=== PATIENT | female | born 1980 | race African-American/Black ===

== ENCOUNTER 2016-07-01 22:27 | Emergency (ER) | payer MEDICAID ==
[~2016-07-01] VITALS: Ht 157.5 cm; Wt 114.0 kg
[~2016-07-01 22:27] MED LIST: BACT800T5 PO; CEPH500C3 PO; METO25 PO
[2016-07-01 22:29] VITALS: BP 117/78; PULSE 80; RESP 18; TEMP 98; O2SAT 100
[2016-07-02] MEDS ORDERED: SODIUM CHLORIDE 0.9% FLUSH 5 ML FLUSH IVF PRN (01:30)
[2016-07-02] MEDS ORDERED: METO25TA3 PO (01:32)
[2016-07-02 02:28] LABS: AUTOMATED NEUTROPHIL # 6.1 TH/MM3 (1.8-7.7); BASOPHIL # 0.1 TH/MM3 (0-0.2); BASOPHIL % 0.8 % (0.0-2.0); EOSINOPHIL # 0.1 TH/MM3 (0-0.4); EOSINOPHIL % 0.6 % (0.0-4.0); HEMATOCRIT 39.4 % (35.0-46.0); HEMO FLAGS DIFF FINAL; LYMPH % 23.1 % (9.0-44.0); MEAN CELL VOLUME 88.4 FL (80.0-100.0); MEAN CORPUSCULAR HEMOGLOBIN 29.7 PG (27.0-34.0); MEAN CORPUSCULAR HGB CONC 33.6 % (32.0-36.0); MONO % 4.2 % (0.0-8.0); NEUT % 71.3 % (16.0-70.0); PLATELET COUNT 326 TH/MM3 (150-450); RED BLOOD COUNT 4.46 MIL/MM3 (4.00-5.30); RED CELL DISTRIBUTION WIDTH 13.7 % (11.6-17.2); WHITE BLOOD COUNT 8.6 TH/MM3 (4.0-11.0)
[2016-07-02 02:45] LABS: ANION GAP 9 MEQ/L (5-15); BICARBONATE 23.9 MEQ/L (21.0-32.0); BLOOD UREA NITROGEN 6 MG/DL (7-18); CHLORIDE 105 MEQ/L (98-107); POTASSIUM 3.7 MEQ/L (3.5-5.1); SODIUM (NA) 138 MEQ/L (136-145)
[2016-07-02 03:03] LABS: BETA HCG QUANT 157841 MIU/ML (0-5)
--- NOTE | 2016-07-02 04:30 | PD ---
HPI Chief Complaint: Related Problem Time Seen by Provider: 01:18 Travel History International Travel<30 days: No Contact w/Intl Traveler<30days: No Traveled to known affect area: No History of Present Illness HPI Patient 35-year-old female at unknown gestational age presents emergency department for evaluation of vaginal bleeding and lower quadrant abdominal cramping. Patient states she's had intermittent vaginal bleeding small volume for the past 2-3 days. Abdominal cramping as well. Denies any change in stool or dysuria. Denies any vaginal discharge. Patient has not yet established with a oncologist. She is not taking vitamins but has been abstaining from smoking drinking or fish. PFSH Past Medical History Anemia: Yes Asthma: No Autoimmune Disease: No Blood Disorders: Yes (ANEMIA) Anxiety: No Depression: No Cancer: No Cardiovascular Problems: Yes Cerebrovascular Accident: No Diabetes: No Diminished Hearing: No Endocrine: No Gastrointestinal Disorders: Yes (CROHNS) Genitourinary: No Hepatitis: No Hypertension: No Immune Disorder: No Kidney Stones: No Musculoskeletal: No Neurologic: No Psychiatric: No Reproductive: No Respiratory: No Immunizations Current: Yes Migraines: No Myocardial Infarction: No Radiation Therapy: No Seizures: No Sickle Cell Disease: No Thyroid Disease: No Ulcer: No ?: LMP: 05/18/15 : 3 Para: 3 Miscarriage: 0 : 0 Past Surgical History AICD: No Appendectomy: No Cardiac Surgery: Yes (AVR) Cholecystectomy: No Joint Replacement: No Pacemaker: No Other Surgery: No Social History Alcohol Use: No Tobacco Use: No Substance Use: No Allergies-Medications (Allergen,Severity, Reaction): Coded Allergies: Augmentin (Verified Allergy, Severe, EPITAXIS, 07/02/16) Ibuprofen (Verified Allergy, Severe, SWELLING, NAUSE, AND VOMITING, 07/02/16 ) Reported Meds & Prescriptions Reported Meds & Active Scripts Active Reported Metoprolol Tartrate 25 Mg Tab 25 Mg PO DAILY Review of Systems Except as stated in HPI: all other systems reviewed are Neg Physical Exam Narrative GENERAL: Well-developed well-nourished no apparent distress.] SKIN: Warm and dry. HEAD: Atraumatic. Normocephalic. EYES: Pupils equal and round. No scleral icterus. No injection or drainage. ENT: No nasal bleeding or discharge. Mucous membranes pink and moist. NECK: Trachea midline. No JVD. CARDIOVASCULAR: Regular rate and rhythm. No murmur appreciated. RESPIRATORY: No accessory muscle use. Clear to auscultation. Breath sounds equal bilaterally. GASTROINTESTINAL: Abdomen soft, non-tender, nondistended. Hepatic and splenic margins not palpable. MUSCULOSKELETAL: No obvious deformities. No clubbing. No cyanosis. No edema. NEUROLOGICAL: Awake and alert. No obvious cranial nerve deficits. Motor grossly within normal limits. Normal speech. PSYCHIATRIC: Appropriate mood and affect; insight and judgment normal. Data Data Last Documented VS Vital Signs Date Time Temp Pulse Resp B/P Pulse Ox O2 Delivery O2 Flow Rate FiO2 07/02/16 01:28 80 18 07/01/16 22:29 98.0 117/78 100 Orders Urinalysis - C+S If Indicated (07/02/16 00:06) Ed Urine Pregnancytest Poc (07/02/16 00:06) Basic Metabolic Panel (Bmp) (07/02/16 01:18) Beta Hcg (Quant/Titer) (07/02/16 01:18) Complete Blood Count With Diff (07/02/16 01:18) Iv Access Insert/Monitor (07/02/16 01:18) Ecg Monitoring (07/02/16 01:18) Oximetry (07/02/16 01:18) Sodium Chloride 0.9% Flush (Ns Flush) (07/02/16 01:30) Ed Poc Ultrasound (07/02/16 01:18) Gc And Chlamydia Pcr (07/02/16 01:57) Labs Laboratory Tests Test 07/02/16 01:55 White Blood Count 8.6 TH/MM3 Red Blood Count 4.46 MIL/MM3 Hemoglobin 13.2 GM/DL Hematocrit 39.4 % Mean Corpuscular Volume 88.4 FL Mean Corpuscular Hemoglobin 29.7 PG Mean Corpuscular Hemoglobin 33.6 % Concent Red Cell Distribution Width 13.7 % Platelet Count 326 TH/MM3 Mean Platelet Volume 8.1 FL Neutrophils (%) (Auto) 71.3 % Lymphocytes (%) (Auto) 23.1 % Monocytes (%) (Auto) 4.2 % Eosinophils (%) (Auto) 0.6 % Basophils (%) (Auto) 0.8 % Neutrophils # (Auto) 6.1 TH/MM3 Lymphocytes # (Auto) 2.0 TH/MM3 Monocytes # (Auto) 0.4 TH/MM3 Eosinophils # (Auto) 0.1 TH/MM3 Basophils # (Auto) 0.1 TH/MM3 CBC Comment DIFF FINAL Differential Comment Sodium Level 138 MEQ/L Potassium Level 3.7 MEQ/L Chloride Level 105 MEQ/L Carbon Dioxide Level 23.9 MEQ/L Anion Gap 9 MEQ/L Blood Urea Nitrogen 6 MG/DL Creatinine 0.60 MG/DL Random Glucose 91 MG/DL Calcium Level 9.2 MG/DL Human Chorionic Gonadotropin, 201624 MIU/ML Quant MDM Medical Decision Making Medical Screen Exam Complete: Yes Emergency Medical Condition: Yes Differential Diagnosis Threatened miscarriage, vaginal bleeding in , large mismatch, round ligament pain, Narrative Course Patient roomed in emergency department, appears well and in no apparent distress. She was offered pain medicine the emergency department and declined. She is not tachycardic or abdomen is benign. Bedside ultrasound was reassuring, on past visits patient was noted to be Rh+. I discussed with her indications for a pelvic exam and she is agreeable initially however while being set up she stated that she had to go and take care of family affairs. Discussed with her that I cannot give any reassurances at this time without doing pelvic exam and she is understandable but chooses to leave AGAINST MEDICAL ADVICE. I discussed needs to follow-up with an FIELD SUPPORT SPECIALIST take vitamins and discussed early care. Procedures Procedure Narrative Bedside ultrasound transabdominal: Single intrauterine seen approximately 8 weeks 6 days by crown-rump length. heart tones in the 170s. No gross abnormality, motion is seen. This is consistent with a normal early intrauterine . Diagnosis Primary Impression: Vaginal bleeding in Qualified Code: O46.91 - Vaginal bleeding in , first trimester Patient Instructions: General Instructions Departure Forms: Tests/Procedures Disposition: AGAINST MEDICAL ADVICE Condition: Stable Iván Pulliam MD Jul 02, 2016 04:30
== END 2016-07-02 04:10 | disposition left against medical advice (07) ==
LOC: NEPC 22:27
DX: O46.91 Antepartum hemorrhage, unspecified, first trimester (principal); Z3A.08 8 weeks gestation of pregnancy
CPT/HCPCS: 80048; 84702; 85025; 99284

== ENCOUNTER → 2016-09-12 | Outpatient (CLI) | payer MEDICAID ==
[~2016-09-12] MED LIST changes: -BACT800T5 PO; -CEPH500C3 PO; -METO25 PO; +METO25TA3 PO
== END ==
LOC: HPND 08:50
PROVIDERS: ATTEND Obstetrics & Gynecology
DX: O09.522 Supervision of elderly multigravida, second trimester (principal); O99.612 Diseases of the digestive system complicating pregnancy, second trimester; O99.212 Obesity complicating pregnancy, second trimester
CPT/HCPCS: 76811

== ENCOUNTER → 2016-10-09 | Outpatient (CLI) | payer MEDICAID | LOC: HPND 10:41 | PROVIDERS: ATTEND Obstetrics & Gynecology | DX: O09.522 Supervision of elderly multigravida, second trimester (principal); O99.612 Diseases of the digestive system complicating pregnancy, second trimester; O35.2XX0 Maternal care for (suspected) hereditary disease in fetus, not applicable or unspecified; O99.322 Drug use complicating pregnancy, second trimester; Z3A.22 22 weeks gestation of pregnancy | CPT/HCPCS: 76816 ==

== ENCOUNTER → 2016-11-09 | Outpatient (CLI) | payer MEDICAID | LOC: HPND 09:56 | PROVIDERS: ATTEND Obstetrics & Gynecology | DX: O09.522 Supervision of elderly multigravida, second trimester (principal); O99.212 Obesity complicating pregnancy, second trimester | CPT/HCPCS: 76816 ==

== ENCOUNTER → 2016-12-14 | Outpatient (CLI) | payer MEDICAID | LOC: HPND 14:28 | PROVIDERS: ATTEND Obstetrics & Gynecology | DX: O09.522 Supervision of elderly multigravida, second trimester (principal); O99.212 Obesity complicating pregnancy, second trimester; Z3A.00 Weeks of gestation of pregnancy not specified | CPT/HCPCS: 76816 ==

== ENCOUNTER 2018-06-19 07:32 | Inpatient (IN) ==
--- NOTE | 2018-06-19 08:30 | P.HPOB ---
History of Present Illness Primary Care Physician: No Primary Care Physician Chief Complaint: induction History of Present Illness: Patient is a 37 year old at 39 weeks gestation by [US at 34 weeks], GIGI [], who presents for scheduled induction for IUGR. She denies leakage of fluid, vaginal bleeding, and contractions. She feels baby moving regularly. She denies SINHA/N/V/D/fever/sick contacts/SOB/calf pain/dizziness/seeing spots. OB care is with Dr. Toledo. IUGR noted on US 06/13 w/ size in 9th %. Med hx: Hx of crohn's, no meds AMA obese Surg hx: exploratory open heart surgery, 07/21/2015 OB hx: Term vag deliveries x4, each >6lb, no complications Fam hx: no problems in Mom or Dad Social hx: No illicit/recreational drug use, no STD hx - Inpatient Certification I certify that the inpatient services were ordered in accordance with Medicare regulations governing the order. This includes certification that hospital inpatient services are reasonable and necessary and in the case of services not specified as inpatient-only under 42 CFR 419.22(n), that they are appropriately provided as inpatient services in accordance to with the 2-midnight benchmark under 43 CFR 412.3(e) Review of Systems All other systems reviewed negative except as stated in HPI Medications and Allergies Allergies Allergy/AdvReac Type Severity Reaction Status Date / Time amoxicillin Allergy Severe EPITAXIS Verified 06/10/18 14:10 clavulanic acid Allergy Severe EPITAXIS Verified 06/10/18 14:10 ibuprofen Allergy Severe SWELLING, Verified 06/10/18 14:10 NAUSE, AND VOMITING Home Medications Medication Instructions Recorded Confirmed Type PNV cmb#95-ferrous fumarate-FA 1 tab PO DAILY NEB 06/10/18 06/10/18 History [] metoprolol succinate 25 mg PO DIRECTED 06/10/18 06/10/18 History Exam Narrative: GENERAL: Well-nourished, well-developed patient. SKIN: Warm and dry. HEAD: Normocephalic and atraumatic. EYES: No scleral icterus. No injection or drainage. ENT: No nasal drainage noted. Mucous membranes pink. Airway patent. NECK: Supple, trachea midline. No JVD. CARDIOVASCULAR: Regular rate and rhythm without murmurs, gallops, or rubs. RESPIRATORY: Breath sounds equal bilaterally. No accessory muscle use. BREASTS: Bilateral exam showed no masses , no retractions, no nipple discharge. ABDOMEN/GI: Abdomen soft, non-tender, bowel sounds present, no rebound, no guarding Gravid to [-] weeks size Fundal Height: [-] GENITOURINARY: External Genitalia: intact and normal in appearance BUS glands: [-] Cervix: post Dilatation: 2 Effacement: 60 Station: -2 Presentation: [-] Membranes: [intact] Uterine Contractions: variable, irregular FHT's: Category: 1 Baseline: 120 Reactive: yes Variability: mod Decels: no EXTREMITIES: No cyanosis or edema. BACK: Nontender without obvious deformity. No CVA tenderness. NEUROLOGICAL: Awake and alert. Motor and sensory grossly within normal limits. Five out of 5 muscle strength in all muscle groups. Normal speech. Caprini VTE Risk Assessment Caprini VTE Risk Assessment: No/Low Risk (score <= 1) Caprini Risk Assessment Model: Point Value = 1 Point Value = 2 Point Value = 3 Point Value = 5 Age 41-60 Minor surgery BMI > 25 kg/m2 Swollen legs Varicose veins or History of unexplained or recurrent spontaneous Oral contraceptives or hormone replacement Sepsis (< 1 month) Serious lung disease, including pneumonia (< 1 month) Abnormal pulmonary function Acute myocardial infarction Congestive heart failure (< 1 month) History of inflammatory bowel disease Medical patient at bed rest Age 61-74 Arthroscopic surgery Major open surgery (> 45 min) Laparoscopic surgery (> 45 min) Malignancy Confined to bed (> 72 hours) Immobilizing plaster cast Central venous access Age >= 75 History of VTE Family history of VTE Factor V Leiden Prothrombin [id number] Lupus anticoagulant Anticardiolipin antibodies Elevated serum homocysteine Heparin-induced thrombocytopenia Other congenital or acquired thrombophilia Stroke (< 1 month) Elective arthroplasty Hip, pelvis, or leg fracture Acute spinal cord injury (< 1 month) Prophylaxis Regimen: Total Risk Factor Score Risk Level Prophylaxis Regimen 0-1 Low Early ambulation 2 Moderate Order ONE of the following: *Sequential Compression Device (SCD) *Heparin 5000 units SQ BID 3-4 Higher Order ONE of the following medications: *Heparin 5000 units SQ TID *Enoxaparin/Lovenox 40 mg SQ daily (WT < 150 kg, CrCl > 30 mL/min) *Enoxaparin/Lovenox 30 mg SQ daily (WT < 150 kg, CrCl > 10-29 mL/min) *Enoxaparin/Lovenox 30 mg SQ BID (WT < 150 kg, CrCl > 30 mL/min) AND/OR *Sequential Compression Device (SCD) 5 or more Highest Order ONE of the following medications: *Heparin 5000 units SQ TID (Preferred with Epidurals) *Enoxaparin/Lovenox 40 mg SQ daily (WT < 150 kg, CrCl > 30 mL/min) *Enoxaparin/Lovenox 30 mg SQ daily (WT < 150 kg, CrCl > 10-29 mL/min) *Enoxaparin/Lovenox 30 mg SQ BID (WT < 150 kg, CrCl > 30 mL/min) AND *Sequential Compression Device (SCD) Assessment and Plan - Diagnosis (1) 39 weeks gestation of Code(s): Z3A.39 - 39 weeks gestation of Status: Acute (2) IUGR (intrauterine growth restriction) Status: Acute (3) AMA (advanced maternal age) multigravida 35+ Code(s): O09.529 - Supervision of elderly multigravida, unspecified trimester Status: Acute - Plan 37 y/o at 39/0 weeks here for scheduled induction. FHT reassuring. GBS positive. Plan to admit to labor and delivery. Will likely start w/Cervidil and Pit. Allergy to amoxicillin, start clindamycin for GBS prophylaxis. Discussed w/Dr. Foreman
[2018-06-19] MEDS ORDERED: Oxytocin 30 Units/500ml Premix 30 UNITS/500 ML BAG IV.SIG ONE ×2 (08:37→22:14)
[2018-06-19] MEDS ORDERED: Oxytocin 30 Units/500ml Premix 30 UNITS/500 ML BAG IV.SIG PRN (08:37)
[2018-06-19] MEDS ORDERED: Naloxone Inj 0.4 MG/ML Vial IV.PUSH PRN (08:37)
[2018-06-19] MEDS ORDERED: Sodium Chlor 0.9% Inj 500 ML IV.SIG PRN (08:37)
[2018-06-19] MEDS ORDERED: fentaNYL Citrate Inj 100 MCG/2 ML Ampul IV.PUSH PRN ×2 (08:37)
[2018-06-19] MEDS ORDERED: Sod Chloride 0.9% Inj 1,000 ML IV.CONT PRN (08:40)
[2018-06-19] MEDS ORDERED: Citric Acid/Sodium Citrate Liq 30 ML UDC PO SCH ×2 (08:45→20:30)
[2018-06-19] MEDS ORDERED: Penicillin G Potassium Inj 5,000,000 UNIT in Sodium Chloride 0.9% Inj 100 ML IV.SIG ONE (09:56)
[2018-06-19] MEDS ORDERED: Penicillin G Potassium Inj 2,500,000 UNIT in Sodium Chlor 0.9% Inj 100 ML IV.SIG SCH (10:00)
[2018-06-19] MEDS ORDERED: Clindamycin 900 mg/NS Premix 900 MG/50 ML PIGGYBACK IV.SIG SCH (10:00)
[2018-06-19 10:10] LABS: Baso % (Auto) 0.5 % (0.0-2.0); Eos # (Auto) 0.1 th/mm3 (0.0-0.4); Hematocrit 25.5 % (35.0-46.0); Hemoglobin 8.8 gm/dL (11.6-15.3); Lymph # (Auto) 1.4 th/mm3 (1.0-4.8); Lymph % (Auto) 18.7 % (9.0-44.0); Mean Corpuscular HGB Conc 34.4 % (32.0-36.0); Mean Corpuscular Hemoglobin 25.9 pg (27.0-34.0); Mean Corpuscular Volume 75.2 fL (80.0-100.0); Mean Platelet Volume 7.4 fL (7.0-11.0); Mono # (Auto) 0.3 th/mm3 (0.0-0.9); Mono % (Auto) 3.5 % (0.0-8.0); Neut # (Auto) 5.7 th/mm3 (1.8-7.7); Neut % (Auto) 76.3 % (16.0-70.0); Platelet Count 397 th/mm3 (150-450); Red Blood Count 3.39 mil/mm3 (4.00-5.30); White Blood Count 7.4 th/mm3 (4.0-11.0)
[2018-06-19 10:22] LABS: Bilirubin,Urine Negative (Negative); Clarity,Urine Clear (Clear); Color,Urine Yellow (Yellw/Straw); Glucose,Urine (UA) Negative (Negative); Leukocyte Esterase,Urine Trace (Negative); Mucus,Urine Few /lpf (Occasional); Nitrite,Urine Negative (Negative); Specific Gravity,Urine 1.016 (1.002-1.035); Squamous Epithelial Cell,Urine 4 /hpf (0-5)
[2018-06-19 10:25] LABS: Urobilinogen,Urine 0.2 mg/dL (Less than 2)
[2018-06-19] MEDS: Clindamycin 900 mg/NS Premix 900 MG/50 ML PIGGYBACK IV.SIG SCH ×2 (11:15→19:25)
[2018-06-19] MEDS ORDERED: fentaNYL 2MCG-Bupiv 0.125% Epi 150 ML EPIDURAL ONE (14:45)
[2018-06-19] MEDS ORDERED: Lidocaaine 1.5%/Epinephrine 1:200,000 PF Inj 5 ML Amp ONE (15:16)
[2018-06-19] MEDS ORDERED: Sodium Chlor 0.9% Inj 10 ML ONE (15:16)
[2018-06-19] MEDS ORDERED: Lidocaine PF 1% Inj 5 ML Vial ONE (15:16)
[2018-06-19] MEDS ORDERED: fentaNYL 2MCG-Bupiv 0.125% Epi 150 ML EPIDURAL PRN (15:35)
[2018-06-19] MEDS ORDERED: fentaNYL Citrate Inj 100 MCG/2 ML Ampul EPIDURAL ONE (15:35)
--- NOTE | 2018-06-19 17:10 | P.OBGPN ---
Patient seen and evaluated Internal monitors put in by RN to monitor Dime Box units and also question of heart rate decelerations At present heart rate is category 1 earlier noted to be a category 2 secondary to decelerations which have now recovered with maternal positioning/ intrauterine resuscitation. Cervical exam 6 cm 80% -2 Continue monitor
[2018-06-19] MEDS ORDERED: Clindamycin 600 mg/NS Premix 600 MG/50 ML PIGGYBACK IV.SIG PRN (20:20)
[2018-06-19] MEDS ORDERED: Morphine Sulfate PF Inj 5 MG/10 ML Ampul ONE (20:25)
--- NOTE | 2018-06-19 20:27 | P.OBGPN ---
Preoperative note Patient completely dilated Several attempts at maternal Valsalva to affect delivery, although heart rate could be to beat variability occasionally heart will go to 90 and 80 bpm lasting for greater than 1-2 minutes With Valsalva there is descent noted Patient counseled for primary delivery Alternatives benefits complications including but not limited to permanent injury to the bowel bladder nerves blood vessels ureters any structures in the surgery under anesthesia related procedures even remote possibility of risk of maternal injury for risk of injury unforeseen injury reoperation risk. Patient accepts plan of care
[2018-06-19] MEDS ORDERED: Lidocaine 2%/Epinephrine 1:200,000 PF 10 ML SDV NERV BLOCK ONE (20:30)
[2018-06-19] MEDS ORDERED: GENTAMICIN IV.SIG PRN (20:30)
[2018-06-19] MEDS ORDERED: SODIUM CHLOR 0.9% IV.SIG PRN (20:30)
[2018-06-19] MEDS ORDERED: Azithromycin Inj 500 MG in Sodium Chlor 0.9% Inj 250 ML IV.SIG ONE (20:30)
--- NOTE | 2018-06-19 22:11 | P.OP ---
- Preoperative Diagnosis (1) CPD (cephalo-pelvic disproportion) (2) Failed induction of labor, delivered (3) Non-reassuring foetal heart rate or rhythm affecting management of foetus (4) Morbidly obese (5) IUGR (intrauterine growth restriction) (6) AMA (advanced maternal age) multigravida 35+ (7) 39 weeks gestation of - Postoperative Diagnosis (1) Short umbilical cord Date of procedure: 06/19/18 Procedure: Primary low uterine segment transverse section Anesthesia: epidural Surgeon: Jana Ron MD Process Improvement Specialist: Anisha Alford R1 Estimated blood loss (mL): 600 Pathology: none sent Operation and Findings: Patient counseled for primary delivery secondary to CPD and nonreassuring heart rate status. Complications including but not limited to permanent injury to the bowel, bladder, nerves, blood vessels, ureters, as well as fetus. Unforeseen injury. Reoperation risk. Infection hemorrhage even possibly . Patient expressed verbal understanding. Taken to the OR where she had an epidural catheter in place which was dosed. Antibiotics given according to protocol. Timeout taken according to protocol. Prepped and draped in normal sterile fashion. Pfannenstiel incision was made through the skin carried down to the underlying layer of fascia with first night. Second knife/blade utilized to nicked the fascia in the midline which was extended laterally digitally. Rectus muscle was with blunt entrance into the peritoneum with care to avoid the bladder. Bladder blade was subsequently placed vesicouterine peritoneum was identified bladder flap was created. An incision on the lower uterine segment in a transverse fashion which was extended laterally digitally. The vertex was subsequently delivered the nares and mouth were bulb suctioned followed by delivery of the remainder of the body. A viable male Apgars 6 and 9 delivered weight 6 pounds 11 ounces without incident. Delayed cord clamping. handed to awaiting NICU team. The placenta was manually removed the uterus was externalized cleared of all clot and debris uterine incision was closed with 1 chromic in a running locked fashion followed by second imbricating Lembert suture. Please note to the patient's right there was an extension which was noted which was initially tied separately and then subsequently brought to the incisional line. Periodic figure of eights to control for hemostasis throughout the incision line. Bilateral adnexa within normal limits. Uterus was repositioned into the pelvic abdominal cavity after paracolic gutters were cleared of all clot and debris. Uterine incision once again reevaluated noted to be hemostatic placed Interceed on top of the incision. With good hemostasis noted. The rectus muscle was evaluated minimal points of bleeding noted readily controlled Bovie pencil. The fascia was closed with 1 Vicryl in a continuous fashion. Subcutaneous bleeding which was minimal controlled with Bovie pencil. Above the incision was cleansed thoroughly with chlorhexidine wash. Subsequently closure of campers fascia interrupted with 1 chromic. The skin was closed with Monocryl on a Stepan needle. Patient taught procedure well sponge lap needle counts correct x2 patient in route to recovery room in stable condition.
[2018-06-19] MEDS ORDERED: Simethicone 80 MG Chew Tablet PO PRN (22:14)
[2018-06-19] MEDS ORDERED: metroNIDAZOLE 500 MG Tablet PO SCH (22:30)
[2018-06-19] MEDS ORDERED: Oxytocin 30 Units/500ml Premix 30 UNITS/500 ML BAG ONE (22:52)
[2018-06-20] MEDS ORDERED: Oxytocin 30 Units/500ml Premix 30 UNITS/500 ML BAG IV.SIG PRN (03:14)
[2018-06-20 05:34] LABS: Baso % (Auto) 0.2 % (0.0-2.0); Hemoglobin 7.7 gm/dL (11.6-15.3); Lymph # (Auto) 1.1 th/mm3 (1.0-4.8); Lymph % (Auto) 7.4 % (9.0-44.0); Mean Corpuscular HGB Conc 31.9 % (32.0-36.0); Mean Corpuscular Hemoglobin 24.2 pg (27.0-34.0); Mean Corpuscular Volume 75.8 fL (80.0-100.0); Mean Platelet Volume 7.6 fL (7.0-11.0); Mono # (Auto) 0.8 th/mm3 (0.0-0.9); Mono % (Auto) 5.8 % (0.0-8.0); Neut # (Auto) 12.4 th/mm3 (1.8-7.7); Neut % (Auto) 86.6 % (16.0-70.0); Platelet Count 376 th/mm3 (150-450); Red Blood Count 3.17 mil/mm3 (4.00-5.30); White Blood Count 14.4 th/mm3 (4.0-11.0)
[2018-06-20] MEDS: Clindamycin 900 mg/NS Premix 900 MG/50 ML PIGGYBACK IV.SIG SCH ×3 (06:20→21:00)
--- NOTE | 2018-06-20 08:22 | P.PNOB ---
Subjective Post op day: 1 Interval history: Patient is a 37-year-old delivered at 39 weeks. Patient is day 1 after . Patient's pain is well-controlled. Patient reports drinking without any nausea or vomiting. She has not had any food yet. Patient reports minimal bleeding. Patient has passed gas but no bowel movements. Patient is walking without lower extremity pain or shortness of breath. Patient reports desire for contraception and formula-feeding. Objective Vital Signs/I&O: Vital Signs 06/19/18 09:55 06/19/18 10:23 06/19/18 11:07 Temperature 98.4 F Pulse Rate 99 H 103 H 98 H Respiratory Rate 18 18 Blood Pressure 118/75 134/79 132/77 06/19/18 11:20 06/19/18 11:30 06/19/18 11:35 Temperature Pulse Rate 96 H 101 H 101 H Respiratory Rate Blood Pressure 06/19/18 11:40 06/19/18 11:45 06/19/18 11:55 Temperature Pulse Rate 101 H 98 H 98 H Respiratory Rate Blood Pressure 102/59 L 06/19/18 12:00 06/19/18 12:42 06/19/18 13:11 Temperature Pulse Rate 95 H 92 H 91 H Respiratory Rate 18 Blood Pressure 124/75 131/73 06/19/18 13:35 06/19/18 13:40 06/19/18 14:10 Temperature 98.3 F Pulse Rate 92 H 89 Respiratory Rate 18 Blood Pressure 104/59 L 123/76 06/19/18 14:55 06/19/18 15:05 06/19/18 15:10 Temperature Pulse Rate 88 86 95 H Respiratory Rate 18 Blood Pressure 106/69 124/70 133/78 06/19/18 15:15 06/19/18 15:20 06/19/18 15:35 Temperature Pulse Rate 104 H 99 H 103 H Respiratory Rate Blood Pressure 140/78 124/66 126/59 L 06/19/18 15:40 06/19/18 15:43 06/19/18 16:01 Temperature 97.6 F Pulse Rate 92 H 103 H Respiratory Rate 18 Blood Pressure 125/62 106/51 L 06/19/18 16:15 06/19/18 16:30 06/19/18 16:45 Temperature Pulse Rate 103 H 111 H 104 H Respiratory Rate Blood Pressure 101/53 L 91/66 L 95/63 L 06/19/18 16:56 06/19/18 17:00 06/19/18 17:13 Temperature 97.6 F Pulse Rate 99 H 99 H Respiratory Rate 18 Blood Pressure 110/58 L 117/60 06/19/18 17:30 06/19/18 17:59 06/19/18 18:05 Temperature Pulse Rate 108 H 95 H Respiratory Rate 18 Blood Pressure 109/74 80/55 L 06/19/18 18:51 06/19/18 19:00 06/19/18 19:15 Temperature Pulse Rate 95 H 96 H Respiratory Rate 18 16 Blood Pressure 122/62 117/66 06/19/18 19:30 06/19/18 19:40 06/19/18 20:00 Temperature 98.7 F Pulse Rate 91 H 101 H 94 H Respiratory Rate 16 16 Blood Pressure 125/70 126/68 128/71 06/19/18 20:05 06/19/18 22:10 06/19/18 22:25 Temperature 97.8 F Pulse Rate 97 H 100 H 101 H Respiratory Rate 16 16 Blood Pressure 153/68 H 106/58 L 113/70 06/19/18 22:40 06/19/18 22:55 06/19/18 23:10 Temperature 98.0 F Pulse Rate 105 H 98 H 99 H Respiratory Rate 16 16 16 Blood Pressure 118/72 118/70 112/64 06/20/18 00:15 06/20/18 06:00 Temperature 98.0 F 98.5 F Pulse Rate 94 H 91 H Respiratory Rate 18 18 Blood Pressure 124/69 98/58 L Intake & Output 06/19/18 06/20/18 06/20/18 18:59 06:59 18:59 Intake Total 1050 / 1050 1000 / 1000 Balance 1050 / 1050 1000 / 1000 Weight 117.934 kg Intake: IV 1050 / 1050 1000 / 1000 LR 1000 mL Inj 1,000 ML @ 125 1000 / 1000 1000 / 1000 mls/hr IV.CONT .Q8H BOBY Rx#: [id number] Cleocin 900 mg/NS Premix 900 mg 50 / 50 In 50 ml @ 100 mls/hr IV.SIG Q8H BOBY Rx#:[id number] Other: Weight On Admission 117.934 kg Result Diagrams: 06/20/18 04:37 Objective Remarks: GENERAL: Well-nourished, well-developed patient. CARDIOVASCULAR: Regular rate and rhythm without murmurs, gallops, or rubs. RESPIRATORY: Breath sounds equal bilaterally. No accessory muscle use. ABDOMEN/GI: Abdomen soft, non-tender, bowel sounds present. Incision: Clean, dry and intact bandage and binder with minimal dried blood on right side. Fundus: Firm, non-tender at umbilicus. GENITOURINARY: Light to moderate bleeding. EXTREMITIES: No cyanosis or edema, non-tender, without signs of DVT. Medications and IVs: Active Medications Ascorbic Acid (Vitamin C) 500 mg PO DAILY [facility] Diphtheria/Pertussis/Tetanus Vacc (Boostrix Vaccine Inj) 0.5 ml IM .ONCE ONE Stop: 06/20/18 16:01 Ferrous Sulfate (Ferosul) 325 mg PO BID [facility] Lactated Ringer's (Lr 1000 Ml Inj) 1,000 mls @ 100 mls/hr IV.CONT .Q10H [facility] Stop: 06/20/18 23:13 Last Admin: 06/20/18 06:00 Dose: 100 mls/hr Oxytocin (Pitocin 30 Units/Ns 500 Ml Premix) 30 units in 500 mls @ 100 mls/hr IV.SIG UNSCH PRN PRN Reason: Heavy bleeding Clindamycin/Sodium Chloride (Cleocin 900 Mg/Ns Premix) 900 mg in 50 mls @ 100 mls/hr IV.SIG Q8H [facility] Stop: 06/20/18 21:29 Last Admin: 06/20/18 06:20 Dose: Not Given Metronidazole/Sodium Chloride (Flagyl 500 Mg Inj) 100 mls @ 100 mls/hr IV.SIG Q8H [facility] Stop: 06/20/18 16:59 Last Admin: 06/20/18 01:31 Dose: Not Given Measles/Mumps/Rubella Vaccine Live (M-M-R Ii Vaccine Inj) 0.5 ml SQ .ONCE ONE Stop: 06/20/18 16:01 Ondansetron HCl (Zofran Inj) 4 mg IV.PUSH Q6H PRN PRN Reason: NAUSEA OR VOMITING Oxycodone/Acetaminophen (Percocet 5/325 Mg) 1 tab PO Q4H PRN PRN Reason: PAIN SCALE 3 TO 5 Oxycodone/Acetaminophen (Percocet 5/325 Mg) 2 tab PO Q4H PRN PRN Reason: PAIN SCALE 6 TO 10 Senna/Docusate Sodium (Grace-Colace) 2 tab PO Q12H PRN PRN Reason: CONSTIPATION Simethicone (Mylicon Chew) 80 mg PO QID PRN PRN Reason: FLATULENCE Sodium Chloride (Ns Flush) 2 ml IV.FLUSH BID BOBY Sodium Chloride (Ns Flush) 2 ml IV.FLUSH PRN PRN PRN Reason: FLUSH AFTER USING IV ACCESS Assessment and Plan - Diagnosis (1) IUGR (intrauterine growth restriction) Status: Acute (2) AMA (advanced maternal age) multigravida 35+ Code(s): O09.529 - Supervision of elderly multigravida, unspecified trimester Status: Acute (3) Delivery by emergency Code(s): O82 - Encounter for delivery without indication Status: Acute - Plan Patient is a 37-year-old delivered at 39 weeks. Patient is day 1 after . Patient was counseled to do 6 weeks of pelvic rest. Patient was counseled to follow up in 6 weeks. Patient requested follow-up and contraception. --AF VSS ---H/H after operation 7.7/24.0 from 8.8/25.5 --Continue routine care --Motrin and Percocet when necessary for pain --Encourage OOB --Pelvic rest for 6 weeks will need follow-up appointment at that time. --Contraception: IUD --Anticipate discharge tomorrow or Sunday Patient discussed with Dr. Ron
[2018-06-20] MEDS: Senna/Docusate Sodium 8.6/50 MG Tablet PO PRN ×2 (09:39→22:03)
[2018-06-20] MEDS: Ascorbic Acid 500 MG Tablet PO SCH (09:40)
[2018-06-20] MEDS: Gentamicin Inj 100 MG in Sodium Chlor 0.9% Inj 100 ML IV.SIG SCH ×3 (09:40)
[2018-06-20] MEDS: Ferrous Sulfate 325 MG Tablet PO SCH ×2 (09:40→22:04)
[2018-06-20] MEDS ORDERED: Diphtheria/Tetanus/Pertussis Vaccine Inj 0.5 ML Syringe IM ONE (16:00)
[2018-06-20] MEDS ORDERED: Measles/Mumps/Rubella Vaccine Inj 0.5 ML Vial SQ ONE (16:00)
[2018-06-21 07:55] VITALS: RESP 18
--- NOTE | 2018-06-21 08:31 | P.PNOB ---
Subjective Post op day: 2 Interval history: Postoperative day number [-]. AFVSS overnight. Pain [-]. Incision not draining. Decreased lochia. Denies dysuria. No breast tenderness. She is feeding the baby via [-]. Appetite good. No nausea or vomiting. [-] flatus. [ -] bowel movement. Ambulating well. Denies calf pain, shortness of breath, or cough. Otherwise, she is doing well this morning and has no other complaints. Objective Vital Signs/I&O: Vital Signs 06/20/18 13:00 06/20/18 16:58 06/20/18 20:00 Temperature 98.5 F 98.3 F 98.2 F Pulse Rate 88 96 H Respiratory Rate 18 20 16 Blood Pressure 110/63 102/60 06/21/18 07:30 Temperature 98.8 F Pulse Rate 87 Respiratory Rate 18 Blood Pressure 127/75 Result Diagrams: 06/20/18 04:37 Objective Remarks: GENERAL: Well-nourished, well-developed patient. CARDIOVASCULAR: Regular rate and rhythm without murmurs, gallops, or rubs. RESPIRATORY: Breath sounds equal bilaterally. No accessory muscle use. ABDOMEN/GI: Abdomen soft, non-tender, bowel sounds present. Incision: Clean, dry and intact. Fundus: Firm, non-tender at umbilicus. GENITOURINARY: Light to moderate bleeding. EXTREMITIES: No cyanosis or edema, non-tender, without signs of DVT. Medications and IVs: Active Medications Ascorbic Acid (Vitamin C) 500 mg PO DAILY [facility] Last Admin: 06/20/18 09:40 Dose: 500 mg Ferrous Sulfate (Ferosul) 325 mg PO BID [facility] Last Admin: 06/20/18 22:04 Dose: 325 mg Oxytocin (Pitocin 30 Units/Ns 500 Ml Premix) 30 units in 500 mls @ 100 mls/hr IV.SIG UNSCH PRN PRN Reason: Heavy bleeding Gentamicin Sulfate 100 mg/ (Sodium Chloride) 102.5 mls @ 102.5 mls/hr IV.SIG Q12HR [facility] Stop: 06/21/18 09:59 Last Admin: 06/20/18 09:40 Dose: 102.5 mls/hr Ondansetron HCl (Zofran Inj) 4 mg IV.PUSH Q6H PRN PRN Reason: NAUSEA OR VOMITING Oxycodone/Acetaminophen (Percocet 5/325 Mg) 1 tab PO Q4H PRN PRN Reason: PAIN SCALE 3 TO 5 Last Admin: 06/20/18 16:00 Dose: 1 tab Oxycodone/Acetaminophen (Percocet 5/325 Mg) 2 tab PO Q4H PRN PRN Reason: PAIN SCALE 6 TO 10 Senna/Docusate Sodium (Grace-Colace) 2 tab PO Q12H PRN PRN Reason: CONSTIPATION Last Admin: 06/20/18 22:03 Dose: 2 tab Simethicone (Mylicon Chew) 80 mg PO QID PRN PRN Reason: FLATULENCE Sodium Chloride (Ns Flush) 2 ml IV.FLUSH BID [facility] Last Admin: 06/20/18 22:06 Dose: 2 ml Sodium Chloride (Ns Flush) 2 ml IV.FLUSH PRN PRN PRN Reason: FLUSH AFTER USING IV ACCESS Assessment and Plan - Diagnosis (1) IUGR (intrauterine growth restriction) Status: Acute (2) AMA (advanced maternal age) multigravida 35+ Code(s): O09.529 - Supervision of elderly multigravida, unspecified trimester Status: Acute (3) Delivery by emergency Code(s): O82 - Encounter for delivery without indication Status: Acute - Plan Patient is a 37-year-old delivered at 39 weeks. Patient is day 1 after . Patient was counseled to do 6 weeks of pelvic rest. Patient was counseled to follow up in 6 weeks. Patient requested follow-up and contraception. --AF VSS --Continue routine care --Motrin and Percocet when necessary for pain --Encourage OOB --Pelvic rest for 6 weeks will need follow-up appointment at that time. --Contraception: IUD --Anticipate discharge today or tomorrow ALYSSA Mendosa
[2018-06-21] MEDS: Ascorbic Acid 500 MG Tablet PO SCH (08:44)
[2018-06-21] MEDS: Ferrous Sulfate 325 MG Tablet PO SCH ×2 (08:44→21:36)
[2018-06-21] MEDS ORDERED: Bisacodyl 10 MG Supp RECTAL ONE (09:30)
[2018-06-21] MEDS: Gentamicin Inj 100 MG in Sodium Chlor 0.9% Inj 100 ML IV.SIG SCH (10:03)
[2018-06-21] MEDS: Senna/Docusate Sodium 8.6/50 MG Tablet PO PRN (13:17)
--- NOTE | 2018-06-22 06:18 | P.PNOB ---
Subjective Post op day: 3 Interval history: Postoperative day number [3]. AFVSS overnight. Pain is minimal. Incision not draining. Decreased lochia. Denies dysuria. No breast tenderness. She has not been feeding baby. Appetite is ok. No nausea or vomiting. Passing flatus. No bowel movement. Ambulating well. Denies calf pain, shortness of breath, or cough. Otherwise, she is doing well this morning and has no other complaints. Objective Vital Signs/I&O: Vital Signs 06/21/18 07:30 06/21/18 20:00 Temperature 98.8 F 98.2 F Pulse Rate 87 72 Respiratory Rate 18 18 Blood Pressure 127/75 122/68 Result Diagrams: 06/20/18 04:37 Objective Remarks: GENERAL: Well-nourished, well-developed patient. CARDIOVASCULAR: Regular rate and rhythm without murmurs, gallops, or rubs. RESPIRATORY: Breath sounds equal bilaterally. No accessory muscle use. ABDOMEN/GI: Abdomen soft, non-tender, bowel sounds present. Incision: Clean, dry and intact. Fundus: Firm, non-tender at umbilicus. GENITOURINARY: Light to moderate bleeding. EXTREMITIES: No cyanosis or edema, non-tender, without signs of DVT. Medications and IVs: Active Medications Ascorbic Acid (Vitamin C) 500 mg PO DAILY [facility] Last Admin: 06/21/18 08:44 Dose: 500 mg Bisacodyl (Dulcolax Ec) 5 mg PO DAILY PRN PRN Reason: CONSTIPATION Ferrous Sulfate (Ferosul) 325 mg PO BID [facility] Last Admin: 06/21/18 21:36 Dose: 325 mg Oxytocin (Pitocin 30 Units/Ns 500 Ml Premix) 30 units in 500 mls @ 100 mls/hr IV.SIG UNSCH PRN PRN Reason: Heavy bleeding Ondansetron HCl (Zofran Inj) 4 mg IV.PUSH Q6H PRN PRN Reason: NAUSEA OR VOMITING Oxycodone/Acetaminophen (Percocet 5/325 Mg) 1 tab PO Q4H PRN PRN Reason: PAIN SCALE 3 TO 5 Last Admin: 06/22/18 02:00 Dose: 1 tab Oxycodone/Acetaminophen (Percocet 5/325 Mg) 2 tab PO Q4H PRN PRN Reason: PAIN SCALE 6 TO 10 Senna/Docusate Sodium (Grace-Colace) 2 tab PO Q12H PRN PRN Reason: CONSTIPATION Last Admin: 06/21/18 13:17 Dose: 2 tab Simethicone (Mylicon Chew) 80 mg PO QID PRN PRN Reason: FLATULENCE Sodium Chloride (Ns Flush) 2 ml IV.FLUSH BID [facility] Last Admin: 06/21/18 20:55 Dose: Not Given Sodium Chloride (Ns Flush) 2 ml IV.FLUSH PRN PRN PRN Reason: FLUSH AFTER USING IV ACCESS Assessment and Plan - Diagnosis (1) IUGR (intrauterine growth restriction) Status: Acute (2) AMA (advanced maternal age) multigravida 35+ Code(s): O09.529 - Supervision of elderly multigravida, unspecified trimester Status: Acute (3) Delivery by emergency Code(s): O82 - Encounter for delivery without indication Status: Acute - Plan Patient is a 37-year-old delivered at 39 weeks. Patient is day 3 after . Patient was counseled to do 6 weeks of pelvic rest. Patient was counseled to follow up in 6 weeks. Patient requested follow-up and contraception. --AF VSS --Continue routine care --Motrin and Percocet when necessary for pain --Encourage OOB --Pelvic rest for 6 weeks will need follow-up appointment at that time. --Contraception: IUD --Anticipate discharge this afternoon after increasing ambulation and increasing food intake ALYSSA CAMPA
[2018-06-22 08:10] VITALS: BP 124/75; PULSE 87; TEMP 98
[2018-06-22] MEDS: Ferrous Sulfate 325 MG Tablet PO SCH (08:16)
[2018-06-22] MEDS: Ascorbic Acid 500 MG Tablet PO SCH (08:16)
== END 2018-06-22 13:43 | disposition home or self-care (01) | DRG 788 ==
LOC: H2E 07:32 → H1EA 23:31
PROVIDERS: ADMIT Obstetrics & Gynecology Maternal & Fetal Medicine; ATTEND Obstetrics & Gynecology Maternal & Fetal Medicine
CPT/HCPCS: 59025; 81001; 85025; J0456; J1580; J2274; J2405; J2590; J7050; J7120